=== PATIENT | female | born 1995 | race Caucasian/White ===

== ENCOUNTER 2016-07-22 09:10 | Inpatient (IN) | payer OTHER ==
[~2016-07-22] VITALS: Ht 161.9 cm; Wt 67.9 kg
--- NOTE | ~2016-07-22 | TXPLANREV ---
"PATIENT: LAUREN FARAH | | [facility] UNIT #: [id number] | [address] AGE/SEX: 20 F : [birth year] | [address] | [place] [address] ADMIT/REG DATE: 07/22/16 | ROOM: [facility] LOC: ADTC | ADTC | Treatment Plan/Staffing Review Date: 08/12/16 Treatment plan was reviewed and determined appropriate as written: yes Treatment plan was reviewed and the following changes/addition/deletions are necessary: Client was given the assignment Beth Baby to read. Discharge plans were reviewed and determined appropriate as previously documented: yes Discharge plans were reviewed and determined to be as follows: Client is hopefully going to be going to [facility]. Other pertinent issues discussed during this staffing review include: none Staff Present: Oliva Reyna, Monie Metz, Alexandra Reyes, Starla Lundberg PRIMARY COUNSELOR: Jacinta Pizano Client Signature Counselor Signature Date Time "
--- NOTE | ~2016-07-22 | INDIVTXPL2 ---
"PATIENT: LAUREN FARAH | | [facility] UNIT #: [id number] | [address] AGE/SEX: 20 F : [birth year] | [address] | [place] [address] ADMIT/REG DATE: 07/22/16 | ROOM: [facility] LOC: ADTC | ADTC | Individualized Treatment Plan DATE: 07/29/16 Problem Statement/Issue Identified: Client has history of problems in relationships as evidenced by: dependency on opposite sex to feel okay about themselves which is inhibiting recovery and leads to relapse. Goal: Assist client in gaining understanding of dependence on the opposite sex to feel good about her self and learn to set healthy boundaries in her relationships. Objectives/Activities to achieve goal: 1. Client is to make a pros and cons list of her relationship that she is in now and share it with her counselor and in group. Due Date: 08/07/16 Complete: Incomplete: 2. Client will read Women and Relapse and share how she can relate with her counselor and in group. Due Date: 08/11/16 Complete: Incomplete: 3. Client will complete a Self-Cannon packet and share with her counselor and selected pages in group. Due Date: Complete: Incomplete: Client Signature Date Counselor Signaure: Date Outcome/Measurement of Progress Towards Goal: Counselor Signature: Date "
--- NOTE | ~2016-07-22 | CLPRLASSUM ---
"PATIENT: LAUREN FARAH | | [facility] UNIT #: [id number] | [address] AGE/SEX: 20 F : [birth year] | [address] | [place] [address] ADMIT/REG DATE: 07/22/16 | ROOM: [facility] LOC: ADTC | ADTC | Client Problem List/Assessment Summary Date: 07/29/16 Problems identified by the client: relationships, resentments, life became unmanageable Problems identified by significant others: none Client's Strengths: friendly, caring, outgoing Problem List: Code: T Client continues to use alcohol & drugs despite ongoing negative consequences. Code: T Client has history of problems in relationships as evidenced by: dependency on opposite sex to feel okay about themselves which is inhibiting recovery and leads to relapse. Code: T Client exhibits an inability or unwillingness to follow through with a recovery program when not in a highly structured setting. Code: T Client needs to identify relapse warning signs and develop a plan to deal with them as they arise. Code Will: T: to be addressed during course of treatment O: problem noted, expected to resolve itself with abstinence--specific tx plan not required R: problem noted, will be referred upon discharge PRIMARY COUNSELOR: Jacinta Pizano"
--- NOTE | ~2016-07-22 | TXPLANREV ---
"PATIENT: LAUREN FARAH | | [facility] UNIT #: [id number] | [address] AGE/SEX: 20 F : [birth year] | [address] | [place] [address] ADMIT/REG DATE: 07/22/16 | ROOM: [facility] LOC: ADTC | ADTC | Treatment Plan/Staffing Review Date: 08/05/16 Treatment plan was reviewed and determined appropriate as written: yes Treatment plan was reviewed and the following changes/addition/deletions are necessary: Client was given the assignment to write a pros and cons list of her relationship she is in, the booklet Women in Recovery to read, and a Self-Perkins packet to work on. Discharge plans were reviewed and determined appropriate as previously documented: yes Discharge plans were reviewed and determined to be as follows: Client has signed release forms and filled out an application for the [employer] and will be interviewed on Tuesday morning. Other pertinent issues discussed during this staffing review include: Client was placed on contract due to spending too much time with a male peer. Staff Present: Alexandra Cao, Oliva Reyna PRIMARY COUNSELOR: Jacinta Pizano Client Signature Counselor Signature Date Time "
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
--- NOTE | ~2016-07-22 | INDIVTXPL2 ---
"PATIENT: LAUREN FARAH | | [facility] UNIT #: [id number] | [address] AGE/SEX: 20 F : [birth year] | [address] | [place] [address] ADMIT/REG DATE: 07/22/16 | ROOM: [facility] LOC: ADTC | ADTC | Individualized Treatment Plan DATE: 07/29/16 Problem Statement/Issue Identified: Client continues to use alcohol & drugs despite ongoing negative consequences. Goal: Client will learn how to identify negative consequences of her addiction, attend AA/NA meetings, and meet women in recovery. Objectives/Activities to achieve goal: 1. Client is to complete How To Get Started In Treatment packet, which will take a look at how her addiction has progressed in her life, and share it with her counselor and selected pages in group. Due Date: 08/07/16 Complete: Incomplete: 2. Client is to complete Step 1, learning how she has compromised her core values and standards, and share it with her counselor and selected pages in group. Due Date: 08/07/16 Complete: Incomplete: 3. Client is to attend AA/NA meetings, ask for and get at least 5 names and numbers of women in recovery, so she can build a support system and gain a possible sponsor and share with her counselor. Due Date: on-going Complete: Incomplete: Client Signature Date Counselor Signaure: Date Outcome/Measurement of Progress Towards Goal: Counselor Signature: Date "
--- NOTE | 2016-08-02 07:51 | HP ---
ADMIT: 07/22/2016 RM/LOC: [id number] MR#: [id number] [address] [place], [place] [address] VANESSA FARAH [facility] [place] [address] History and Physical SEX: F AGE: 20 : 1995 DATE OF SERVICE: CHIEF COMPLAINT: Chemical use disorder. HISTORY OF PRESENT ILLNESS: Vanessa is a 20-year-old, single, white female, admitted to residential level treatment at [facility] on July 22, 2016. She presents to treatment after having a prior DUI of drugs in recent drug court for possession of methamphetamine charges. She has had prior treatment failures and based on her severity of drug and alcohol abuse, she was referred to residential level treatment. Vanessa's drug of choice on admission is methamphetamines. She first started using meth at around 16 years of age with friends when she smoked it. States she has used it daily off and on ever since. Initially, she used about 0.25 g a day. Heaviest use was the last 6 months, when she used 1 gram or more daily. She admits to using hot rails and eating it as well. She denies any IV drugs. She admits to having sex for drugs, dating a dealer, and having sex with IV drug users. Her last methamphetamine use was May 31, 2016. Second drug of choice is cannabis. She first started smoking pot at around 14 years of age. Initially, she smoked a half to 1 g of pot a day. She progressed to the point where she was smoking a couple blunts a day of marijuana until she was around 16 or 17. States that since she started using meth, her marijuana use has decreased markedly. Her last marijuana use was May 2016. Her third drug of choice is alcohol. She first started drinking around 14. In [employer], she would usually have 3 or 4 mixed drinks around once a week. In high school, she increased to about 6 mixed drinks 3 to 5 times a week. States the last year, she has hardly drank and would only drink one or two mixed drinks around once a month. She denies that alcohol was ever her major drug of choice. She additionally admits to using Mucinex DM [id number] excessively. She states in [employer] and high school, she used air dusters frequently. She additionally admits to using Adderall twice. She denies any other illicit street drugs. PAST MEDICAL HISTORY: OPERATIONS: None. ILLNESSES: None. MEDICATIONS: None. ALLERGIES: INCLUDE PENICILLIN. SOCIAL HISTORY: Is that of a 20-year-old, single, white female. She smokes ADMIT: 07/22/2016 RM/LOC: [id number] [facility] MR#: [id number] [address] [place] [id number] VANESSA FARAH [address] [place] [address] History and Physical SEX: F AGE: 20 : 1995 about a half pack of cigarettes daily. She has drug and alcohol history as outlined. She has been in snf twice, has been through treatment a couple of times with prior failures. FAMILY HISTORY: Includes mother being a social drinker and father used to use meth. Please note additionally, there is no family history of heart attack, strokes, or cancers. REVIEW OF SYSTEMS: Negative. PHYSICAL EXAMINATION: VITAL SIGNS: She is 5 feet 3-3/4 inches with a weight of 67 kg. Blood pressure 114/70, pulse 71 with a temperature of 98.1. GENERAL APPEARANCE: A 20-year-old, white female. She is alert and oriented, appears slightly older than stated age HEENT: Pupils are reactive. Extraocular muscle intact. TMs normal. Throat is unremarkable. NECK: Without nodes or masses. Dentition, good repair. HEART: Regular without murmur. LUNGS: Clear. ABDOMEN: Soft, nontender. Benign. BREASTS: Deferred. AND RECTAL: Deferred. EXTREMITIES: Reveal no clubbing, cyanosis, edema, tracks, or splinter hemorrhages. NEURO: Reveals grossly normal light touch, strength, and DTRs. ASSESSMENT: 1. Stimulant use disorder, severe. 2. Cannabis use disorder, severe in partial remission. 3. Alcohol use disorder, moderate in partial remission. 4. Tobacco use disorder and increased risk for blood borne pathogens including HIV and hep C. PLAN: We will obtain HIV and hepatitis C testing. Place her on a multivitamin and thiamine. Proceed with drug and alcohol abuse dependency treatment and counseling. Further evaluation and management based on her course during hospitalization. Please see her hospital record for further details. Oli Alex MD/ ginger JOB #: [id number] CC: Oli Alex, Attending Physician Susy Barrientos, Family Physician
--- NOTE | 2016-10-10 17:18 | DS ---
ADMIT: 07/22/2016 RM/LOC: Marci [facility] MR#: [id number] [address] [facility] [address] [place] [phone] VANESSA FARAH [address] [place] [address] General Discharge Summary SEX: F AGE: 20 : 1995 ADMISSION DATE: 07/22/2016 DISCHARGE DATE: 08/19/2016 INDICATION FOR HOSPITALIZATION: Vanessa is a 21-year-old, single, white female, admitted to residential level treatment at [facility] on July 22, 2016, after having a prior DUI of drug in a recent drug court for possession of methamphetamine charges. She has had prior treatment failures and was referred to residential level treatment. Vanessa's drug of choice on admission is methamphetamines. Second drug of choice is cannabis. Third drug of choice is alcohol. Please see her admission H and P for further details regarding her history of present illness, past medical history, physical exam, and assessment at the time of hospitalization. HOSPITAL COURSE: On admission, she was started on multivitamin and thiamine given her history of alcohol abuse and dependency. HIV and hepatitis C testing was ordered due to increased risk of exposure. Claritin was later added for allergies. Her primary care counselor assigned was Jacinta Pizano. During treatment, she underwent individual and group therapy sessions on drug and alcohol abuse and dependency. She completed an educational series on substance abuse. Her mother and grandmother were involved in the family portion of her treatment program. Concerns regarding possible STDs and exposure were addressed during her treatment program. Relapse triggers were identified and relapse prevention plan was outlined. The patient admits to probable sexual addiction. During treatment, she completed step #1 of Alcoholics Anonymous. Reason for discharge is completion of residential level treatment goals. Aftercare recommendations include admission to [facility] with sponsor assignment, outpatient counseling, and active AA and NA meeting involvement at least 3 to 4 times weekly. It was recommended that if she is unsuccessful at [facility], consideration for application to [facility] is given. LABORATORY AND X-RAY DATA: Include hepatitis C testing that was negative on July 23. LIST OF DISCHARGE MEDICATIONS: 1. Multivitamin 1 daily. 2. Thiamine 100 mg daily. ADMIT: 07/22/2016 RM/LOC: Marci [facility] MR#: [id number] [address] [address] VANESSA FARAH [address] [place] [address] General Discharge Summary SEX: F AGE: 20 : 1995 PRIMARY DIAGNOSES: 1. Stimulant use disorder, severe. 2. Cannabis use disorder, severe in partial remission. 3. Alcohol use disorder, moderate in partial remission. 4. Tobacco use disorder. 5. Increased risk for blood borne pathogens with negative hepatitis C testing. HIV tests were confidential and not available. 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 PROCEDURES: Include drug and alcohol abuse and dependency treatment and counseling. Please see her hospital record for further details. Oli Alex MD/ ginger JOB #: [id number] CC: Oli Alex MD, Attending Physician Susy Barrientos MD, Family Physician
== END 2016-08-19 10:06 | disposition home or self-care (01) | DRG 895 ==
LOC: ADTC 09:10
PROVIDERS: ADMIT Family Medicine
PROC: HZ43ZZZ Group Counseling for Substance Abuse Treatment, 12-Step (ICD-10-PCS; principal; 2016-07-22)
PROC: HZ63ZZZ Family Counseling for Substance Abuse Treatment (ICD-10-PCS; principal; 2016-07-22)
PROC: HZ34ZZZ Individual Counseling for Substance Abuse Treatment, Interpersonal (ICD-10-PCS; principal; 2016-07-22)
DX: F15.20 Other stimulant dependence, uncomplicated (principal); F10.21 Alcohol dependence, in remission; F12.21 Cannabis dependence, in remission; J30.2 Other seasonal allergic rhinitis; F17.210 Nicotine dependence, cigarettes, uncomplicated; Z72.89 Other problems related to lifestyle; Z63.72 Alcoholism and drug addiction in family; Z65.3 Problems related to other legal circumstances